=== PATIENT | female | born 1985 | race American Indian/Alaskan Native ===

== ENCOUNTER 2023-11-28 20:22 | Emergency (ER) | payer OTHER ==
[~2023-11-28] VITALS: Ht 160 cm; Wt 81.1 kg
[2023-11-29 00:01] VITALS: BP 145/89; PULSE 79; RESP 16; TEMP 99; O2SAT 98
== END 2023-11-29 00:06 | disposition home or self-care (01) ==
LOC: ER 20:23
DX: R10.9 Unspecified abdominal pain (principal)
CPT/HCPCS: 74176; 99284